=== PATIENT | male | born 1990 | race Two or more races ===

== ENCOUNTER 2023-10-09 18:00 | Emergency (ER) | payer BC ==
[~2023-10-09] VITALS: Ht 182.9 cm; Wt 90.7 kg
[2023-10-09] MEDS ORDERED: AMOX-CLAV 875-1 EAC1 PO (20:01)
== END 2023-10-09 20:55 | disposition home or self-care (01) ==
LOC: ER 18:01 → EDBD 18:01 → ER 19:50
DX: S61.219A Laceration without foreign body of unspecified finger without damage to nail, initial encounter (principal); W26.0XXA Contact with knife, initial encounter; Y93.89 Activity, other specified; Y92.89 Other specified places as the place of occurrence of the external cause; Y99.8 Other external cause status